=== PATIENT | female | born 1970 | race Caucasian/White ===

== ENCOUNTER → 2016-07-24 | Outpatient (CLI) | payer OTHER ==
[~2016-07-24] MED LIST: FERR325T PO; GLUCTAB PO; METF500T PO; MILK175C6 PO; MILK250C2 PO
[2016-07-24 10:09] LABS: HDL CHOLESTEROL 54.9 MG/DL (40.0-60.0); LDL CHOLESTEROL 107 MG/DL (0-99)
[2016-07-24 17:32] LABS: HEMOGLOBIN A1b 0.8 %; HEMOGLOBIN Ao 86.7 %; HEMOGLOBIN F 1.3 %; HEMOGLOBIN LA1C 1.8 %; HEMOGLOBIN P3 3.1 %
== END ==
LOC: CLAB 09:19
PROVIDERS: ATTEND Family Medicine
DX: E11.9 Type 2 diabetes mellitus without complications (principal); E66.9 Obesity, unspecified
CPT/HCPCS: 36415; 80061; 83036